=== PATIENT | male | born 1980 | race Caucasian/White ===

== ENCOUNTER 2016-05-10 02:14 | Emergency (ER) | payer MEDICAID ==
[2016-05-10] MEDS ORDERED: ONDANSETRON HCL IV 4 MG/2 ML VIAL IV ONE (02:30)
[2016-05-10] MEDS ORDERED: 0.9 % SODIUM CHLORIDE 1,000 ML BAG IV ONE ×3 (02:30→03:15)
[2016-05-10] MEDS ORDERED: MORPHINE SULFATE 5 MG/ML PFS IVP ONE (02:39)
--- NOTE | 2016-05-10 02:39 | Emergency Department Record ---
History of Present Illness - General Chief complaint: Nausea, Vomiting, Diarrhea Stated complaint: N/V/D HEADACHE X 9 DAYS Time Seen by Provider: 05/10/16 02:30 Source: Patient, Family Mode of Arrival: Ambulatory Limitations: No limitations - History of Present Illness Initial comments: 35 yo male presents not feeling well since 05/02/16. He states he feels weak and aches from his head, through is whole body to his toes. He developed nausea, vomiting, abdominal pain, body aches, burping, belching with bad taste in his mouth initially. He felt constipated at that time. He took one cup of Milk of Magnesia and his stool turned to very loose yellow to green for a couple days. The loose stools stopped and now are formed firm and green. His abdominal pain is mid abdomen around or just lower than the umbilicus. This has been fairly constant. No fevers. He states he has been in bed for the 9 days. He has headaches and dizziness when he stands up especially. Headache are frontal and in the face. No neck pain. No cough, chest pain or shortness of breath. His urine is very dark. He is thirsty. He has a history of HTN. [place]. MD complaint: Abdominal pain, Diarrhea, Nausea, Vomiting Onset/Timin -: Hour(s) Description of Vomiting: Watery Associated Abdominal Pain: Yes Location: Diffuse, Periumbilcal Radiation: None Severity: Moderate Quality: Constant, Other Consistency: Other Improves with: Other Worsens with: Vomiting Context: Other Associated Symptoms: Malaise, Nausea/vomiting, Weakness - Related Data Home Medications Medication Instructions Recorded Confirmed Last Taken Clonidine HCl [Catapres] 0.1 mg PO DAILY 05/10/16 05/10/16 Unknown Quetiapine Fumarate [Seroquel] 0.5 tab PO QHS 05/10/16 05/10/16 Unknown Previous Rx's Medication Instructions Recorded Hydrocodone/Acetaminophen [[place] 1 tab PO Q6H PRN #12 tab 05/10/16 5mg/325mg] Ondansetron [Zofran Odt] 4 mg PO Q8H #15 tab.rapdis 05/10/16 Pantoprazole Sodium [Protonix] 20 mg PO DAILY #30 tablet. 05/10/16 Allergies Allergy/AdvReac Type Severity Reaction Status Date / Time NSAIDS (Non-Steroidal Allergy ANAPHYLAXIS Verified 05/10/16 02:30 Anti-Inflamma Travel Screening - Travel/Exposure Within Last 30 Days Have you traveled within the last 30 days?: No - Travel/Exposure Within Last Year Have you traveled outside the [place] in the last year?: No - Additonal Travel Details Have you been exposed to anyone with a communicable illness?: No - Travel Symptoms Symptom Screening: None Review of Systems Constitutional: Reports: Malaise, Weakness. Denies: Chills, Fever, Night sweats Eyes: Denies: Eye discharge, Eye pain, Photophobia, Vision change ENT: Reports: Throat pain. Denies: Congestion, Ear pain, Epistaxis Respiratory: Denies: Cough, Dyspnea, Hemoptysis, Stridor, Wheezes Cardiovascular: Denies: Chest pain, Palpitations, Syncope Endocrine: Reports: Fatigue. Denies: Polydipsia, Polyuria Gastrointestinal: Reports: Abdominal pain, Constipation, Diarrhea, Nausea, Vomiting. Denies: Hematemesis, Hematochezia, Melena Genitourinary: Denies: Dysuria, Frequency, Hematuria, Retention, Testicular pain Musculoskeletal: Reports: Myalgia. Denies: Arthralgia, Back pain, Gout, Joint swelling, Neck pain Skin: Denies: Bruising, Change in color Neurological: Reports: Headache. Denies: Confusion, Numbness, Paresthesias, Seizure, Tingling, Tremors, Vertigo, Weakness Psychiatric: Denies: Anxiety Hematological/Lymphatic: Denies: Blood Clots, Easy bleeding, Easy bruising, Swollen glands Past Medical History - SOCIAL HISTORY Smoking Status: Never smoker Alcohol Use: Occassional Drug Use: None - RESPIRATORY Hx Respiratory Disorders: No - CARDIOVASCULAR Hx Cardio Disorders: No - NEURO Hx Neuro Disorders: No - GI Hx GI Disorders: No - Hx Genitourinary Disorders: No - ENDOCRINE Hx Endocrine Disorders: No - MUSCULOSKELETAL Hx Musculoskeletal Disorders: No - PSYCH Hx Psych Problems: No - HEMATOLOGY/ONCOLOGY Hx Hematology/Oncology Disorders: No Family Medical History Any Significant Family History?: No Physical Exam - General General Appearance: Alert, Oriented x3, Cooperative, No acute distress Limitations: No limitations - Head Head exam: Normal inspection - Eye Eye exam: Normal appearance, PERRL. negative: Conjunctival injection, Nystagmus , Periorbital swelling, Scleral icterus - ENT ENT exam: Normal exam, Mucous membranes dry, Normal external ear exam, Normal orophraynx, TM's normal bilaterally Ear exam: Normal external inspection. negative: External canal tenderness Nasal Exam: Normal inspection. negative: Discharge, Sinus tenderness Mouth exam: Normal external inspection, Tongue normal Teeth exam: Normal inspection. negative: Dental caries Throat exam: Normal inspection. negative: Tonsillar erythema, Tonsillomegaly, Tonsillar exudate, R peritonsillar mass, L peritonsillar mass - Neck Neck exam: Normal inspection, Full ROM. negative: Lymphadenopathy, Meningismus , Tenderness - Respiratory Respiratory exam: Normal lung sounds bilaterally. negative: Prolonged expiratory, Respiratory distress, Rhonchi, Stridor, Wheezes - Cardiovascular Cardiovascular Exam: Normal rhythm, Normal heart sounds, Tachycardia - GI/Abdominal GI/Abdominal exam: Soft, Tenderness (Tender mid abdomen but soft, no Rebound or Guarding. No mass.). negative: Distended, Guarding, Hernia, Rebound, Rigid - Rectal Rectal exam: Deferred - exam: Deferred - Extremities Extremities exam: Normal inspection, Full ROM, Normal capillary refill. negative: Pedal edema, Tenderness - Back Back exam: Reports: Normal inspection, Full ROM. Denies: Muscle spasm, Rash noted, Tenderness - Neurological Neurological exam: Alert, CN II-XII intact, Normal gait, Oriented X3. negative : Motor sensory deficit - Psychiatric Psychiatric exam: Normal affect, Normal mood - Skin Skin exam: Dry, Intact, Normal color, Warm. negative: Cyanosis, Diaphoretic, Erythema, Mottled Course Vital Signs 05/10/16 02:24 Temperature 98.9 F Pulse Rate 123 H Respiratory 20 Rate Blood Pressure 131/97 Pulse Ox 99 - Reevaluation(s) Reevaluation #1: The vitals and labs were reviewed no fevers No acute changes on the CBC,CMP,Lipase except HCO3 21 05/10/16 03:15 HR improved with first liter to 101 05/10/16 03:16 Reevaluation #2: UA was reviewed and negative. Vitals much improved with HR 92 after fluid hydration 05/10/16 04:25 Reevaluation #3: The patient transported to radiology. He still reports his entire body still feels achy. He hurts from his head to his toes. 05/10/16 04:44 Reevaluation #4: The [facility] reports of the head, abdomen and pelvis were reviewed. No acute changes on either study The patient was informed of he results. We again reviewed the results of the labs No acute changes on the labs, UA, Flu panel, CT's We discussed very close follow up with PCP or return to ED for a recheck No abnormalities noted for his diffuse symptoms with extensive test today I discussed DC home with continued rest, hydration, and very close follow up the PCP or return for recheck in the ED 05/10/16 05:31 05/10/16 05:47 Medical Decision Making - Lab Data Result diagrams: 05/10/16 02:35 05/10/16 02:35 Disposition Disposition: Discharge Clinical Impression: Vomiting and diarrhea, Myalgia Abdominal pain Qualifiers: Abdominal location: generalized Qualified Code(s): R10.84 - Generalized abdominal pain Headache Qualifiers: Headache type: unspecified Headache chronicity pattern: acute headache Intractability: not intractable Qualified Code(s): R51 - Headache Disposition: Home, Self-Care Condition: (1) Good Instructions: Acute Nausea and Vomiting (ED) Additional Instructions: Call your doctor today for close follow up and a recheck Return for a recheck in the ER if you have any vomiting, fever, uncontrolled pain or new concerns. Rest and stay well hydrated Prescriptions: Hydrocodone/Acetaminophen [[place] 5mg/325mg] 1 tab PO Q6H PRN #12 tab PRN Reason: Pain - General Pantoprazole Sodium [Protonix] 20 mg PO DAILY #30 tablet. Ondansetron [Zofran Odt] 4 mg PO Q8H #15 tab.rapdis Forms: Patient Portal Access Time of Disposition: 05:35
[2016-05-10 03:00] LABS: HEMATOCRIT 44.8 % (42.0-52.0); HEMOGLOBIN 15.2 gm/dl (14.0-18.0); MEAN CELL VOLUME 84.2 fl (81-97); MEAN CORPUSCULAR HEMOGLOBIN 28.6 pg (27-33); MEAN CORPUSCULAR HGB CONC 33.9 g/dl (32-36); MEAN PLATELET VOLUME 10.8 fl (7.4-10.4); PLATELET COUNT 336 K/uL (130-400); RED BLOOD COUNT 5.32 M/uL (4.40-5.70); RED CELL DISTRIBUTION WIDTH 13.6 % (11.5-14.5); WHITE BLOOD COUNT W/O DIFF 9.4 K/uL (4.2-12.2)
[2016-05-10] MEDS ORDERED: HYDROMORPHONE HCL 1 MG/ML CPJ IVP ONE (03:04)
[2016-05-10 03:10] LABS: ALBUMIN 4.7 gm/dL (3.5-5.0); ALKALINE PHOSPHATASE 64 U/L (38-126); ALT/SGPT 54 U/L (21-72); ANION GAP 11.5 (7-16); AST/SGOT 23 U/L (17-59); BILIRUBIN,TOTAL 0.81 mg/dL (0.2-1.3); BLOOD UREA NITROGEN 12 mg/dL (9-20); CARBON DIOXIDE 21.5 mmol/L (22-30); EST GLOMERULAR FILTRATION RATE > 60 ml/min; GLUCOSE,RANDOM 128 mg/dL (70-110); LIPASE 20 U/L (23-300); TOTAL PROTEIN 7.7 gm/dL (6.3-8.2)
[2016-05-10 03:32] LABS: URINE APPEARANCE CLEAR; URINE BILIRUBIN NEGATIVE (NEGATIVE); URINE BLOOD NEGATIVE (NEGATIVE); URINE COLOR YELLOW; URINE GLUCOSE (UA) NEGATIVE (NEGATIVE); URINE KETONE NEGATIVE (NEGATIVE); URINE LEUKOCYTE ESTERASE NEGATIVE (NEGATIVE); URINE NITRITE NEGATIVE (NEGATIVE); URINE PROTEIN NEGATIVE (NEGATIVE); URINE UROBILINOGEN 0.2 E.U./dL (0.20 - 1.00)
[2016-05-10] MEDS ORDERED: ACETAMINOPHEN 1,000 MG in SODIUM CHLORIDE 1 BAG IVPB ONE (04:03)
[2016-05-10 05:09] LABS: INFLUENZA A NEGATIVE (NEGATIVE); INFLUENZA B NEGATIVE (NEGATIVE)
[2016-05-10] MEDS ORDERED: HYDROCODONE/APAP 7.5/325MG TABLET PO ONE (05:45)
--- NOTE | 2016-05-12 15:44 | CT SCAN REPORT ---
EXAM: CT SCAN HEAD WO CONTRAST HISTORY: HEADACHE. INTERMITTENT BODY ACHES AND FEVER. VOMITING AND DIARRHEA. TECHNIQUE: Routine noncontrast CT examination of the head. COMPARISON: None. FINDINGS: The ventricles and subarachnoid spaces are normal in size. No area of abnormally increased or decreased attenuation is noted throughout the brain substance. No abnormal extraaxial fluid collection is seen. No skull fracture is identified. Minimal chronic deformity of the nasal bones is questioned. There is minimal mucosal thickening within the inferior aspect of the right frontal sinus. Minimal mucosal thickening is also suggested in a few ethmoid air cells anteriorly bilaterally. The visualized paranasal sinuses and mastoid air cells are otherwise clear. The orbits, as visualized, are unremarkable. IMPRESSION: 1. NO CT EVIDENCE OF ACUTE INTRACRANIAL ABNORMALITY. 2. MINOR CHRONIC-APPEARING DEFORMITY OF THE NASAL BONES QUESTIONED. 3. MINOR MUCOSAL THICKENING WITHIN THE INFERIOR RIGHT FRONTAL SINUS AND A FEW BILATERAL ETHMOID AIR CELLS. JOB NUMBER: [id number] MTDD
--- NOTE | 2016-05-12 15:50 | CT SCAN REPORT ---
EXAM: CT SCAN ABDOMEN/PELVIS W CONTRAST HISTORY: HEADACHE. BODY ACHES AND FEVER INTERMITTENTLY WITH NAUSEA AND DIARRHEA FOR NINE DAYS. TECHNIQUE: Following oral and intravenous contrast administration, helical CT examination of the abdomen and pelvis was performed including delayed images through the kidneys with 100 mL of Omnipaque-300 utilized. COMPARISON: None. FINDINGS: There is minor dependent atelectasis in each lung base. The lung bases are otherwise clear and there is no pleural or pericardial effusion. The heart is not enlarged. The liver, spleen, pancreas, adrenal glands, and kidneys are normal in appearance. The gallbladder is unremarkable. No intraabdominal nor retroperitoneal lymphadenopathy is seen. The abdominal aorta and iliac arteries are normal in appearance. No pelvic mass, lymphadenopathy, or free pelvic fluid is seen. No intrinsic urinary bladder abnormality is demonstrated. No gross bowel dilatation or bowel wall thickening is seen though evaluation of the colon is somewhat limited by lack of oral contrast opacification. The appendix is visualized and normal in appearance. No destructive bone lesion is seen. There are mild degenerative endplate changes scattered throughout the visualized lower lumbar spine. IMPRESSION: 1. NO CT EVIDENCE OF AN ACUTE INTRAABDOMINAL NOR INTRAPELVIC PROCESS. 2. MINOR DEPENDENT ATELECTASIS IN EACH LUNG BASE. JOB NUMBER: [id number] MTDD
== END 2016-05-10 06:03 | disposition home or self-care (01) ==
LOC: ER 02:14
DX: R10.84 Generalized abdominal pain (principal); R11.2 Nausea with vomiting, unspecified; R19.7 Diarrhea, unspecified; R53.1 Weakness; M79.1 Myalgia; R42 Dizziness and giddiness
CPT/HCPCS: 99284 ×2; 96374; 96375; 96361; 83690; 80076; 80048; 81003; 87400; 85027; 70450; 74177; Q9967; J2405; J1170; J2270; J7030

== ENCOUNTER 2016-07-17 23:11 | Emergency (ER) | payer MEDICAID ==
[2016-07-17] MEDS ORDERED: DIPHENHYDRAMINE HCL IV 50 MG/ML VIAL IVP ONE (23:29)
[2016-07-17] MEDS ORDERED: METOCLOPRAMIDE HCL 10 MG/2 ML VIAL IVP ONE (23:29)
[2016-07-17] MEDS ORDERED: ORPHENADRINE CITRATE 60MG/2ML VIAL IM ONE (23:31)
--- NOTE | 2016-07-17 23:34 | Emergency Department Record ---
History of Present Illness - General Chief Complaint: Headache Migraine Stated Complaint: FLORES Time Seen by Provider: 07/17/16 23:14 Source: Patient Mode of Arrival: Ambulatory Limitations: No limitations - History of Present Illness Initial Comments: The patient is here due to a FLORES for 3 days. He woke up with the FLORES 3 days ago and it has gradually worsened since. It is a throbbing FLORES in the temples bilaterally and now also in the back of the head. He does have mild photophobia but no vomiting, fever, or chills. The patient has had similar FLORES's in the past just like this. MD Complaint: Headache Onset/Timin -: Days(s) Onset Description: Gradual Location: Occipital, Temporal Severity: Moderate Severity scale (1-10): 8 Quality: Aching, Sharp, Throbbing, Similar to previous headaches Consistency: Constant Improves With: Cold therapy Worsens With: Exertion/activity, Sitting/standing Treatments Prior to Arrival: Acetaminophen - Related Data Home Medications Medication Instructions Recorded Confirmed Last Taken Quetiapine Fumarate [Seroquel] 0.5 tab PO QHS 05/10/16 07/17/16 Unknown Allergies Allergy/AdvReac Type Severity Reaction Status Date / Time NSAIDS (Non-Steroidal Allergy ANAPHYLAXIS Verified 05/10/16 02:30 Anti-Inflamma Travel Screening - Travel/Exposure Within Last 30 Days Have you traveled within the last 30 days?: No - Travel/Exposure Within Last Year Have you traveled outside the [place] in the last year?: No - Additonal Travel Details Have you been exposed to anyone with a communicable illness?: No - Travel Symptoms Symptom Screening: None Review of Systems Constitutional: Denies: Chills, Fever Eyes: Denies: Eye discharge ENT: Denies: Congestion Respiratory: Denies: Cough, Dyspnea Cardiovascular: Denies: Arrhythmia, Chest pain Past Medical History - SOCIAL HISTORY Smoking Status: Never smoker Alcohol Use: Occassional Alcohol Use Comment: 3 x month Drug Use: None - RESPIRATORY Hx Respiratory Disorders: No - CARDIOVASCULAR Hx Cardio Disorders: No - NEURO Hx Neuro Disorders: No - GI Hx GI Disorders: Yes Hx Ulcer: Yes - Hx Genitourinary Disorders: No - ENDOCRINE Hx Endocrine Disorders: No - MUSCULOSKELETAL Hx Musculoskeletal Disorders: No - PSYCH Hx Psych Problems: No - HEMATOLOGY/ONCOLOGY Hx Hematology/Oncology Disorders: No Family Medical History Any Significant Family History?: No Physical Exam - General General Appearance: Alert, Oriented x3, Cooperative, No acute distress - Head Head exam: Atraumatic, Normocephalic, Normal inspection (Palpation of the temples reproduces the FLORES 100%.) - Eye Eye exam: Normal appearance, PERRL, EOMI - ENT ENT exam: Normal exam, Mucous membranes moist, Normal external ear exam, Normal orophraynx Throat exam: Normal inspection. negative: Tonsillar erythema, Tonsillar exudate - Neck Neck exam: Normal inspection, Full ROM. negative: Lymphadenopathy, Meningismus (The neck is very supple. There is no pain with ROM.), Tenderness - Respiratory Respiratory exam: Normal lung sounds bilaterally. negative: Respiratory distress - Cardiovascular Cardiovascular Exam: Regular rate, Normal rhythm, Normal heart sounds - GI/Abdominal GI/Abdominal exam: Soft, Normal bowel sounds. negative: Tenderness - Extremities Extremities exam: Normal inspection, Full ROM, Normal capillary refill. negative: Tenderness - Neurological Neurological exam: Alert, Normal gait, Oriented X3, Other (Neg Drift and Rhomberg exams.). negative: Abnormal gait, Altered, Motor sensory deficit - Psychiatric Psychiatric exam: negative: Agitated, Anxious, Depressed Course Vital Signs 07/17/16 23:17 Temperature 98.4 F Pulse Rate 80 Respiratory 18 Rate Blood Pressure 128/79 Pulse Ox 98 - Reevaluation(s) Reevaluation #1: The patient is doing much better at this time. His FLORES is 90% gone at this time and he would like to go home. He is instructed to F/U with his PCP for further testing possibly. 07/18/16 00:23 Disposition Disposition: Discharge Clinical Impression: Headache Qualifiers: Headache type: unspecified Headache chronicity pattern: acute headache Intractability: not intractable Qualified Code(s): R51 - Headache Disposition: Home, Self-Care Condition: (2) Stable Instructions: Acute Headache (ED) Additional Instructions: Please rest and take your home pain medicines if needed. Please see your PCP this week for recheck and to possibly have a brain MRI ordered. Return to the ER if worse. Forms: Patient Portal Access Time of Disposition: 00:25
[2016-07-18] MEDS ORDERED: HYDROMORPHONE HCL 1 MG/ML CPJ IVP ONE (00:01)
== END 2016-07-18 00:40 | disposition home or self-care (01) ==
LOC: ER 23:11
DX: R51 Headache (principal); H53.149 Visual discomfort, unspecified
CPT/HCPCS: 99284 ×2; 96374; 96372; 96375; J1170; J1200; J2360; J2765

== ENCOUNTER 2016-08-05 00:09 | Emergency (ER) | payer MEDICAID ==
[2016-08-05] MEDS ORDERED: PROMETHAZINE HCL 25 MG/ML VIAL IM ONE (00:58)
[2016-08-05] MEDS ORDERED: HYDROMORPHONE HCL 2 MG/ML VIAL IM ONE (00:58)
[2016-08-05] MEDS ORDERED: ORPHENADRINE CITRATE 60MG/2ML VIAL IM ONE (00:58)
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
== END 2016-08-05 02:08 | disposition home or self-care (01) ==
LOC: ER 00:09
DX: G89.21 Chronic pain due to trauma (principal); M54.5 Low back pain; M54.16 Radiculopathy, lumbar region
CPT/HCPCS: 99283 ×2; 96372; J1170; J2360; J2550